=== PATIENT | male | born 1950 | race Caucasian/White ===

== ENCOUNTER 2020-10-05 01:25 | Emergency (ER) | payer BC, MEDICARE ==
[2020-10-05 01:32] VITALS: BP 133/85; PULSE 99; RESP 18; TEMP 98.3
[2020-10-05] MEDS ORDERED: HYDROmorphone 0.5 MG/0.5 ML SYRINGE IM STA (02:20)
--- NOTE | 2020-10-05 02:28 | XR ---
EXAM: XR Right Foot Complete, 3 or More Views CLINICAL HISTORY: ITS.REASON XR Reason: gout? injury yesterday but pain started today TECHNIQUE: Frontal, lateral and oblique views of the right foot. COMPARISON: No relevant prior studies available. FINDINGS: Bones/joints: Unremarkable. No acute fracture. No dislocation. Plantar calcaneal spur. Degenerative changes of bubba right first metatarsophalangeal joint. No focal erosions. Soft tissues: Unremarkable. No radiopaque foreign body. IMPRESSION: 1. No acute fractures or traumatic malalignment to the right foot. 2. Degenerative changes of the right first metatarsophalangeal joint. No significant edema, soft tissue swelling or erosions.
[2020-10-05] MEDS ORDERED: INDOMETHACIN 25 MG CAP PO ONE (02:30)
[2020-10-05] MEDS ORDERED: ACET/COD 300 MG/30 MG STARTER PACK 6 TAB BTL PO STA (03:00)
--- NOTE | 2020-10-05 03:01 | ED ---
Lower Extremity Injury HPI - General Chief Complaint: Extremity Injury, Lower Stated Complaint: Right foot injury Time Seen by Provider: 10/05/20 01:34 Source: patient Mode of arrival: wheelchair Limitations: no limitations - History of Present Illness Initial Comments: 70-year-old male history of gout presenting for right great toe pain. Patient states that on Monday afternoon he tripped down the second to last step. He states he felt we did not hit his head neck chest abdomen he denies noting any extremity injuries at all was walking around normally. Patient states that this afternoon around 3 PM he developed right great toe pain. Patient states it was very tender to walk on. He states he is not sure if this was secondary to the fall. Patient denies any bruising ankle pain knee pain, he denies any fevers chills or malaise. He states at the base of the right great toe looks slightly red. He denies any openings in skin or lacerations. Many resistive negative upon arrival patient appears well nontoxic distress - Related Data Previous Rx's Medication Instructions Recorded HYDROcodone/APAP 5-325MG [[place] 1 tab PO Q4HR PRN 3 Days #18 tab 10/05/20 5-325] Indomethacin [Indocin] 50 mg PO BID 5 Days #20 capsule 10/05/20 Allergies Allergy/AdvReac Type Severity Reaction Status Date / Time No Known Allergies Allergy Verified 10/05/20 01:32 Review of Systems ROS Statement: Those systems with pertinent positive or pertinent negative responses have been documented in the HPI. ROS Other: All systems not noted in ROS Statement are negative. Past Medical History Past Medical History: Hyperlipidemia History of Any Multi-Drug Resistant Organisms: None Reported Past Surgical History: Orthopedic Surgery Past Psychological History: No Psychological Hx Reported Smoking Status: Never smoker Past Alcohol Use History: None Reported Past Drug Use History: None Reported General Exam - General Exam Comments Initial Comments: General: The patient is awake and alert, in no distress, and does not appear acutely ill. Eye: +3 mm pupils are equal, round and reactive to light, extra-ocular movements are intact. No nystagmus. There is normal conjunctiva bilaterally. No signs of icterus. Musculoskeletal: Redness at the first MTP joint. tender, no bruising, full ROM. no plantar bruising or forefoot pain. Normal ROM, no tenderness. Strength 5/5. Sensation intact. Radial and DP pulses equal bilaterally 2+. Neurological: A&O x 3. CN II-XII intact grossly, There are no obvious motor or sensory deficits. Coordination appears grossly intact. Speech is normal. Skin: Skin is warm and dry and no rashes or lesions are noted. Psychiatric: Cooperative, appropriate mood & affect, normal judgment. Limitations: no limitations Course Vital Signs 10/05/20 01:29 Temperature 98.3 F Pulse Rate 99 Respiratory 18 Rate Blood Pressure 133/85 O2 Sat by Pulse 98 Oximetry Medical Decision Making - Medical Decision Making Given the history provided and physical examination that feel that this is most likely gout. Patient states he did not initially have any toe pain after the fall, and I feel this is a significant delay in the onset of symptoms-patient does have history of gout, there is redness swelling and pain at the MTP joint, and signs of degeneration. Patient has no fevers, chills, general malaise. I discussed case and reviewed xr with attending Dr Temple who is agreeable to discharge with indomethacin and norco as well as orthopedic f/u. recommend crutches for comfort. patient discharged appearing well, return parameters discussed. Disposition Clinical Impression: Pain of right great toe Disposition: HOME SELF-CARE Condition: Good Instructions (If sedation given, give patient instructions): Gout (ED) Additional Instructions: Please use medication as discussed. Please follow-up with orthopedic surgery in next 2-3 days and PCP in 1-2 days. Please return to emergency room if the symptoms increase or worsen or for any other concerns. Prescriptions: Indomethacin [Indocin] 50 mg PO BID 5 Days #20 capsule HYDROcodone/APAP 5-325MG [[place] 5-325] 1 tab PO Q4HR PRN 3 Days #18 tab PRN Reason: Pain Is patient prescribed a controlled substance at d/c from ED?: No Referrals: Erik Garrett DO [Primary Care Provider] - 1-2 days Larry Aguilar MD [STAFF PHYSICIAN] - 1-2 days Time of Disposition: 03:01
== END 2020-10-05 04:26 | disposition home or self-care (01) ==
LOC: EC 01:25
DX: M79.674 Pain in right toe(s) (principal); E78.5 Hyperlipidemia, unspecified
CPT/HCPCS: 73630; 99283; J1170

== ENCOUNTER 2022-03-19 09:41 | Inpatient (IN) | payer MEDICARE ==
[2022-03-19 10:25] LABS: Basophils # (A) 0.1 k/uL (0-0.2); Basophils % (A) 0 %; Eosinophils # (A) 0.1 k/uL (0-0.7); Eosinophils % (A) 0 %; HCT 45.4 % (39.0-53.0); Lymphocytes # (A) 0.8 k/uL (1.0-4.8); Lymphocytes % (A) 3 %; MCV 90.8 fL (80.0-100.0); Mean Platelet Volume 8.3; Monocytes # (A) 1.8 k/uL (0-1.0); Monocytes % (A) 7 %; Neutrophils # (A) 21.4 k/uL (1.3-7.7); Neutrophils % (A) 87 %; Platelet Count 230 k/uL (150-450); RDW 13.3 % (11.5-15.5); WBC 24.5 k/uL (3.8-10.6)
[2022-03-19] MEDS ORDERED: SODIUM CHLORIDE 0.9% 1,000 ML IV STA ×2 (10:32→13:47)
[2022-03-19] MEDS ORDERED: MORPHINE SULFATE 4 MG/ML SYRINGE IVP STA (10:32)
[2022-03-19] MEDS ORDERED: ONDANSETRON 4 MG/2 ML VIAL IVP STA (10:32)
--- NOTE | 2022-03-19 10:35 | XR ---
EXAMINATION TYPE: XR KUB DATE OF EXAM: 03/19/2022 Comparison: None Clinical History: 72-year-old male with right lower quadrant abdominal pain Findings: Lung bases are clear. No evidence for free intraperitoneal air. Scattered prominent small bowel loops measuring up to 3.1 cm. No differential air-fluid levels are se en. Scattered colonic air extending distally to rectum. Mild overall stool within the right side of t he colon. Bowel content largely obscures the renal shadows. Impression: Gassy abdomen. Overall nonobstructive bowel gas pattern. Some borderline distended small bowel loops measuring up to 3.1 cm could reflect an ileus or enteritis.
[2022-03-19 11:10] LABS: ALT 22 U/L (4-49); AST 39 U/L (17-59); African American GFR (CKD) >90 (>60 ml/min/1.73 sqM); Alkaline Phosphatase 76 U/L (38-126); Amylase 43 U/L (30-110); Anion Gap 13 mmol/L; Blood Urea Nitrogen 11 mg/dL (9-20); Calcium 8.3 mg/dL (8.4-10.2); Carbon Dioxide 20 mmol/L (22-30); Chloride 100 mmol/L (98-107); Glucose 153 mg/dL (74-99); Lipase 27 U/L (23-300); Non-African American GFR(CKD) >90 (>60 ml/min/1.73 sqM); Potassium 4.2 mmol/L (3.5-5.1); Sodium 133 mmol/L (137-145); Total Bilirubin 1.5 mg/dL (0.2-1.3); Total Protein 6.8 g/dL (6.3-8.2)
[2022-03-19 11:57] LABS: Appearance,Urine Clear (Clear); Bilirubin,Urine Negative (Negative); Blood,Urine Moderate (Negative); Color,Urine Yellow; Glucose,Urine (UA) 2+ (Negative); Leukocyte Esterase,Urine Negative (Negative); Mucus,Urine Occasional /hpf; Nitrite,Urine Negative (Negative); Protein,Urine 1+ (Negative); RBC,Urine 38 /hpf (0-5); Specific Gravity,Urine 1.028 (1.001-1.035); Squamous Epithelial Cell,Urine <1 /hpf (0-4); WBC,Urine 1 /hpf (0-5)
[2022-03-19 12:04] LABS: Ketones,Urine 2+ (Negative)
--- NOTE | 2022-03-19 13:19 | CT ---
EXAMINATION TYPE: CT abdomen pelvis w con DATE OF EXAM: 03/19/2022 COMPARISON: NONE HISTORY: 72-year-old male RLQ abdominal pain TECHNIQUE: Contiguous axial scanning of the abdomen and pelvis following administration of 100 ml Iso kerline 300 IV contrast. Delayed images through the kidneys and coronal/sagittal reconstructions perform ed. CT DLP: 1903 mGycm Automated exposure control for dose reduction was used. FINDINGS: Heart normal size without pericardial effusion. Extensive LAD and RCA coronary artery calcifications are present. Mild aneurysm or descending thoracic aorta to 3.0 cm. Small hilar hernia. Suspect pleura l parenchymal scarring at both lung bases. No pleural effusion. Liver mildly enlarged at 18.1 cm. Portal venous system is patent. Low attenuation of the hepatic pare nchyma could represent fatty infiltration. Portal venous system is patent. No biliary ductal dilatation. Enlarged 1.2 cm woodrow hepatic lymph node likely reactive. No other mesenteric or retroperitoneal lymp hadenopathy. There is hydropic gallbladder changes with melquiades wall thickening and moderate to severe surrounding f at stranding and edema. Trace ascites at the dome of the bladder and mild within the pelvis. No free air. Adrenal glands, spleen, and pancreas within normal limits. Bilateral extra renal pelves. A couple benign renal cortical cysts measuring up to 1.1 cm. No dilated small bowel. Some subcutaneous fat stranding in the periumbilical region is nonspecific. Correlate for any celluli tis here. There is fusiform aneurysm infrarenal abdominal aorta measuring up to 4.0 cm. Distal abdominal aorta remains dilated up to 3.1 cm to the level of the bifurcation. Ectatic left common iliac artery up to 1.8 cm. A couple short segment fusiform aneurysms right common iliac artery measuring up to 2.2 cm. Mild stool burden. Scattered colonic diverticulosis along both the right side of the colon and lower descending and sigmoid colon. Inflammation at the level of the hepatic flexure likely contiguous with the gallbladder rather than relating to any diverticulitis. Bladder urine distended. Trace ascites fluid extends along the left lateral canal. Prostate gland yeny sures 4.9 cm wide. Pelvic phlebolith. No pelvic lymphadenopathy. Mild cul-de-sac free fluid. Bones: Mild degenerative change of the hips. Moderate to advanced degenerative disc disease L4-L5 and L5-S1. Additional moderate degenerative disc disease lower thoracic spine. IMPRESSION: 1. CT FINDINGS OF ACUTE CHOLECYSTITIS WITH MODERATE TO SEVERE INFLAMMATION. REACTIVE TRACE PERIHEPATI C ASCITES AND MILD PELVIC ASCITES. 2. INFLAMMATORY WALL THICKENING OF THE HEPATIC FLEXURE THE COLON. LIKELY CONTIGUOUS INFLAMMATION FROM THE GALLBLADDER RATHER THAN ACUTE DIVERTICULITIS. 3. CAD WITH EXTENSIVE LAD AND RCA CORONARY ARTERY CALCIFICATIONS. 4. ANEURYSM LOWER DESCENDING THORACIC AORTA UP TO 3.0 CM AND INFRARENAL ABDOMINAL AORTA UP TO 4.0 CM. A COUPLE OF SHORT SEGMENT ANEURYSMS RIGHT COMMON ILIAC ARTERY UP TO 2.2 CM. 5. HEPATIC STEATOSIS.
[2022-03-19] MEDS ORDERED: ONDANSETRON 4 MG/2 ML VIAL IVP PRN (13:51)
[2022-03-19] MEDS ORDERED: NALOXONE 0.4 MG/ML 1 ML VIAL IV PRN (13:51)
[2022-03-19] MEDS ORDERED: MORPHINE SULFATE 4 MG/ML SYRINGE IV PRN (13:51)
--- NOTE | 2022-03-19 13:58 | ED ---
General Adult HPI - General Chief complaint: Abdominal Pain Stated complaint: rt abd pain Time Seen by Provider: 03/19/22 10:50 Source: patient, RN notes reviewed, old records reviewed Mode of arrival: ambulatory Limitations: no limitations - History of Present Illness Initial comments: Patient is a 72-year-old male with past medical history remarkable for hyperlipidemia who presents emergency Department complaining of right lower quadrant abdominal pain. Has a history of appendectomy. States that the pain started a few days ago but has gotten slowly worse. Denies any fevers. Endorses nausea but no vomiting. Denies any change in his bowel movements. Denies any urinary complaints. Denies any chest pain or shortness of breath. Describes pain as sharp, achy sensation. Does not radiate. Presents for further evaluation time. No fevers, chills, sick contacts. No cough, upper respiratory symptoms. - Related Data Previous Rx's Medication Instructions Recorded HYDROcodone/APAP 5-325MG [[place] 1 tab PO Q4HR PRN 3 Days #18 tab 10/05/20 5-325] Indomethacin [Indocin] 50 mg PO BID 5 Days #20 capsule 10/05/20 Allergies Allergy/AdvReac Type Severity Reaction Status Date / Time No Known Allergies Allergy Verified 03/19/22 09:52 Review of Systems ROS Statement: Those systems with pertinent positive or pertinent negative responses have been documented in the HPI. Review of Systems: CONST: Denies fever EYES: Denies blurry vision ENT: Denies nasal congestion C/V: Denies Chest pain RESP: Denies shortness of breath GI: Endorses abdominal pain : Denies dysuria SKIN: Denies rash. MSK: Denies joint pain. NEURO: Denies headache ROS Other: All systems not noted in ROS Statement are negative. Past Medical History Past Medical History: Hyperlipidemia History of Any Multi-Drug Resistant Organisms: None Reported Past Surgical History: Orthopedic Surgery Past Psychological History: No Psychological Hx Reported Smoking Status: Never smoker Past Alcohol Use History: None Reported Past Drug Use History: None Reported General Exam - General Exam Comments Initial Comments: General: Appears in no acute distress. HEAD: Normal with no signs of head trauma. EYES: PERRLA, EOMI, conjunctiva normal, no discharge. ENT: Hearing grossly intact, normal oropharynx. RESPIRATORY: Clear breath sounds bilaterally. No wheezes, rales, or rhonchi. C/V: Mild sinus tachycardia with regular rhythm.. S1 and S2 auscultated, no edema, peripheral pulses 2+ and intact throughout ABD: Abdomen soft, nondistended. Tender to palpation primarily in the right lower quadrant as well as right mid quadrant. Some mild guarding in the right mid quadrant as well. Mild tenderness to palpation of the right upper quadrant. No left-sided abdominal tenderness. No rebound tenderness. No peritoneal signs. EXT: Normal range of motion, no obvious deformity SKIN: No rashes or lesions observed on exposed skin. NEURO: Alert and oriented 4. Limitations: no limitations Course Vital Signs 03/19/22 09:49 Temperature 99.2 F Pulse Rate 111 H Respiratory 18 Rate Blood Pressure 143/81 O2 Sat by Pulse 92 L Oximetry Medical Decision Making - Medical Decision Making Based on the patient's presentation and physical exam, I'm concerned for acute intra-abdominal process. This started in triage. It did reveal a leukocytosis of 24.5. Lactic acid is within normal limits. LFTs, alk phos are within normal limits. Total bilirubin is very slightly elevated to 1.5. Urinalysis is relatively unremarkable, positive for ketones and glucose. Moderate amount of blood. Covid is negative. I did discuss with him at this time I would like to obtain a CT abdomen and pelvis. He was in agreement this plan. He'll be symptomatic pretreated as well. Vital signs are within normal limits. He is tachycardic but this is likely secondary to pain. There was a delay in obtaining CT due to large volume of patients. CT abdomen pelvis did reveal acute moderate to severe cystitis. There is also reactive inflammation. There is a lower descending thoracic aortic aneurysm with maximal diameter up to 3.0-4.0 cm there is also hepatic steatosis. On reevaluation after the patient. I like to admit him to the hospital here. He was in agreement this plan. I spoke with surgery on-call Dr. Bustillos. He accepted the patient. Requested patient be made nothing by mouth. Anabolic selection by Dr. Bustillos was IV Rocephin and Flagyl which was ordered. Patient was started on IV fluids 130 mL an hour. Patient will be admitted in stable condition to Dr. Bustillos. - Lab Data Result diagrams: 03/19/22 09:58 03/19/22 09:58 Lab Results 03/19/22 03/19/22 03/19/22 Range/Units 09:58 09:58 10:00 WBC 24.5 H (3.8-10.6) k/uL RBC 5.00 (4.30-5.90) m/uL Hgb 15.0 (13.0-17.5) gm/dL Hct 45.4 (39.0-53.0) % MCV 90.8 (80.0-100.0) fL MCH 30.0 (25.0-35.0) pg MCHC 33.0 (31.0-37.0) g/dL RDW 13.3 (11.5-15.5) % Plt Count 230 (150-450) k/uL MPV 8.3 Neutrophils % 87 % Lymphocytes % 3 % Monocytes % 7 % Eosinophils % 0 % Basophils % 0 % Neutrophils # 21.4 H (1.3-7.7) k/uL Lymphocytes # 0.8 L (1.0-4.8) k/uL Monocytes # 1.8 H (0-1.0) k/uL Eosinophils # 0.1 (0-0.7) k/uL Basophils # 0.1 (0-0.2) k/uL Sodium 133 L (137-145) mmol/L Potassium 4.2 (3.5-5.1) mmol/L Chloride 100 (98-107) mmol/L Carbon Dioxide 20 L (22-30) mmol/L Anion Gap 13 mmol/L BUN 11 (9-20) mg/dL Creatinine 0.74 (0.66-1.25) mg/dL Est GFR (CKD-EPI)AfAm >90 (>60 ml/min/1.73 sqM) Est GFR (CKD-EPI)NonAf >90 (>60 ml/min/1.73 sqM) Glucose 153 H (74-99) mg/dL Plasma Lactic Acid Sunil (0.7-2.0) mmol/L Calcium 8.3 L (8.4-10.2) mg/dL Total Bilirubin 1.5 H (0.2-1.3) mg/dL AST 39 (17-59) U/L ALT 22 (4-49) U/L Alkaline Phosphatase 76 (38-126) U/L Total Protein 6.8 (6.3-8.2) g/dL Albumin 4.0 (3.5-5.0) g/dL Amylase 43 (30-110) U/L Lipase 27 (23-300) U/L Urine Color Urine Appearance (Clear) Urine pH (5.0-8.0) Ur Specific [place] (1.001-1.035) Urine Protein (Negative) Urine Glucose (UA) (Negative) Urine Ketones (Negative) Urine Blood (Negative) Urine Nitrite (Negative) Urine Bilirubin (Negative) Urine Urobilinogen (<2.0) mg/dL Ur Leukocyte Esterase (Negative) Urine RBC (0-5) /hpf Urine WBC (0-5) /hpf Ur Squamous Epith Cells (0-4) /hpf Urine Mucus (None) /hpf Coronavirus (PCR) Not Detected (Not Detectd) 03/19/22 03/19/22 Range/Units 11:20 11:20 WBC (3.8-10.6) k/uL RBC (4.30-5.90) m/uL Hgb (13.0-17.5) gm/dL Hct (39.0-53.0) % MCV (80.0-100.0) fL MCH (25.0-35.0) pg MCHC (31.0-37.0) g/dL RDW (11.5-15.5) % Plt Count (150-450) k/uL MPV Neutrophils % % Lymphocytes % % Monocytes % % Eosinophils % % Basophils % % Neutrophils # (1.3-7.7) k/uL Lymphocytes # (1.0-4.8) k/uL Monocytes # (0-1.0) k/uL Eosinophils # (0-0.7) k/uL Basophils # (0-0.2) k/uL Sodium (137-145) mmol/L Potassium (3.5-5.1) mmol/L Chloride (98-107) mmol/L Carbon Dioxide (22-30) mmol/L Anion Gap mmol/L BUN (9-20) mg/dL Creatinine (0.66-1.25) mg/dL Est GFR (CKD-EPI)AfAm (>60 ml/min/1.73 sqM) Est GFR (CKD-EPI)NonAf (>60 ml/min/1.73 sqM) Glucose (74-99) mg/dL Plasma Lactic Acid Sunil 1.3 (0.7-2.0) mmol/L Calcium (8.4-10.2) mg/dL Total Bilirubin (0.2-1.3) mg/dL AST (17-59) U/L ALT (4-49) U/L Alkaline Phosphatase (38-126) U/L Total Protein (6.3-8.2) g/dL Albumin (3.5-5.0) g/dL Amylase (30-110) U/L Lipase (23-300) U/L Urine Color Yellow Urine Appearance Clear (Clear) Urine pH 7.0 (5.0-8.0) Ur Specific [place] 1.028 (1.001-1.035) Urine Protein 1+ H (Negative) Urine Glucose (UA) 2+ H (Negative) Urine Ketones 2+ H (Negative) Urine Blood Moderate H (Negative) Urine Nitrite Negative (Negative) Urine Bilirubin Negative (Negative) Urine Urobilinogen 2.0 (<2.0) mg/dL Ur Leukocyte Esterase Negative (Negative) Urine RBC 38 H (0-5) /hpf Urine WBC 1 (0-5) /hpf Ur Squamous Epith Cells <1 (0-4) /hpf Urine Mucus Occasional H (None) /hpf Coronavirus (PCR) (Not Detectd) Disposition Clinical Impression: Acute cholecystitis Disposition: ADMITTED IP TO THIS [facility] Condition: Stable Referrals: Erik Garrett DO [Primary Care Provider] - 1-2 days Time of Disposition: 13:30
[2022-03-19 14:48] LABS: INR 1.1 (<1.2)
[2022-03-19 14:49] LABS: Partial Thromboplastin Time 26.5 sec (22.0-30.0)
[2022-03-19] MEDS: metroNIDAZOLE-NS PMX 500 MG in SALINE 1 100ML.BAG IVPB SCH ×2 (15:42→23:24)
[2022-03-19] MEDS ORDERED: PROPOFOL 10 MG/ML 20 ML VIAL IV ONE (17:43)
[2022-03-19] MEDS ORDERED: LIDOCAINE 2% INJ 20 MG/ML (2 ML VIAL) ONE (17:43)
[2022-03-19] MEDS ORDERED: SUCCINYLCHOLINE CHLORIDE 200 MG/10 ML VIAL IV ONE (17:43)
[2022-03-19] MEDS ORDERED: HYDROmorphone (PF) 1 MG/ML ONE (17:43)
[2022-03-19] MEDS ORDERED: ePHEDrine 50 MG/ML 1 ML VIAL ONE (17:43)
[2022-03-19] MEDS ORDERED: ONDANSETRON 4 MG/2 ML VIAL ONE (17:43)
[2022-03-19] MEDS ORDERED: ROCURONIUM 10 MG/ML (5 ML VIAL) IV ONE (17:43)
[2022-03-19] MEDS ORDERED: fentaNYL (PF) 50 MCG/ML 2 ML AMP ONE (17:43)
[2022-03-19] MEDS ORDERED: PHENYLEPHRINE-0.9% NACL SYG 1,000 MCG/10 ML SYRINGE ONE (17:43)
[2022-03-19] MEDS ORDERED: MIDAZOLAM 2 MG/2 ML VIAL ONE (17:43)
[2022-03-19] MEDS ORDERED: IV FLUID CONTINUATION 1,000 ML IV ONE (17:46)
[2022-03-19] MEDS ORDERED: BUPIVACAIN-EPI 0.25%-1:200,000 30 ML VIAL SQ ONE ×2 (18:08)
[2022-03-19] MEDS ORDERED: LACTATED RINGERS 1,000 ML IV ONE ×2 (18:54→20:28)
--- NOTE | 2022-03-19 22:55 | P.HPIM ---
History of Present Illness H&P Date: 03/19/22 Chief Complaint: Abdominal pain 72-year-old gentleman who presented to the emergency department today with 2 days history abdominal pain. Pain was associated with nausea and nonbloody emesis. Patient states pain was primarily on the right side, it is now more generalized. Patient was seen in the emergency department a CAT scan was done which was consistent with acute cholecystitis. Patient is also noted to have some aneurysmal change in the thoracic and abdominal aorta without evidence of rupture. Patient denies any prior history of cholecystitis or known gallbladder problems. Imaging demonstrates a normal common bile duct liver function studies are normal aside from the total bilirubin of 1.4. Review of Systems Patient denies any headache change in vision no shortness of breath chest pain no urinary symptoms no new musculoskeletal problems. Past Medical History Past Medical History: Hyperlipidemia Additional Past Medical History / Comment(s): Past medical history notable for hyperlipidemia. Denies angina or myocardial infarction stroke or breathing difficulties. History of Any Multi-Drug Resistant Organisms: None Reported (Past surgical history notable for open appendectomy, umbilical herniorrhaphy, bilateral knee replacement and lower endoscopy.) Past Surgical History: Orthopedic Surgery Past Psychological History: No Psychological Hx Reported Smoking Status: Never smoker Past Alcohol Use History: None Reported Past Drug Use History: None Reported Medications and Allergies Home Medications Medication Instructions Recorded Confirmed Type Ascorbic Acid [Vitamin C] 1,000 mg PO DAILY 03/19/22 03/19/22 History Cholecalciferol [Vitamin D3 (25 25 mcg PO DAILY 03/19/22 03/19/22 History Mcg = 1000 Iu)] Ezetimibe [Zetia] 10 mg PO DAILY 03/19/22 03/19/22 History Zinc Gluconate [Zinc] 50 mg PO DAILY 03/19/22 03/19/22 History Allergies Allergy/AdvReac Type Severity Reaction Status Date / Time No Known Allergies Allergy Verified 03/19/22 15:00 Physical Exam Vitals: Vital Signs Temp Pulse Resp BP Pulse Ox 03/19/22 14:29 99.5 F 99 20 123/68 93 L 03/19/22 09:49 99.2 F 111 H 18 143/81 92 L Intake and Output 03/19/22 03/19/22 03/19/22 06:59 14:59 22:59 Other: Weight 106.594 kg - Constitutional General appearance: average body habitus, cooperative - EENT Eyes: EOMI - Neck Neck: no lymphadenopathy, normal ROM - Respiratory Respiratory: bilateral: CTA - Cardiovascular Regular rate and rhythm no murmur appreciated Rhythm: regular - Gastrointestinal Protuberant, tender over her epigastrium and right upper quadrant. Well-healed cicatrix below umbilicus - Genitourinary Normal genitalia for age - Neurologic Alert and oriented 3 - Psychiatric Psychiatric: appropriate affect Results CBC & Chem 7: 03/19/22 09:58 03/19/22 09:58 Labs: Abnormal Lab Results - Last 24 Hours (Table) 03/19/22 03/19/22 03/19/22 Range/Units 09:58 09:58 11:20 WBC 24.5 H (3.8-10.6) k/uL Neutrophils # 21.4 H (1.3-7.7) k/uL Lymphocytes # 0.8 L (1.0-4.8) k/uL Monocytes # 1.8 H (0-1.0) k/uL Sodium 133 L (137-145) mmol/L Carbon Dioxide 20 L (22-30) mmol/L Glucose 153 H (74-99) mg/dL Calcium 8.3 L (8.4-10.2) mg/dL Total Bilirubin 1.5 H (0.2-1.3) mg/dL Urine Protein 1+ H (Negative) Urine Glucose (UA) 2+ H (Negative) Urine Ketones 2+ H (Negative) Urine Blood Moderate H (Negative) Urine RBC 38 H (0-5) /hpf Urine Mucus Occasional H (None) /hpf CT scan - abdomen: report reviewed (Distended gallbladder with thickened wall, pericholecystic fluid noted. Findings consistent with acute cholecystitis), image reviewed Assessment and Plan Assessment: 72-year-old male with acute cholecystitis Elevated WBC, no indication choledocholithiasis Past medical history as noted above Plan: Broad-spectrum IV antibiotics Plan for laparoscopic possible open cholecystectomy The nature of gallbladder disease its surgical treatment and expected results discussed Potential complications including bleeding, infection, and injury to the common bile duct discussed Patient indicates he understands and desires to pursue cholecystectomy. Time with Patient: Greater than 30 (Spoke with anesthesia, operating room team called)
[2022-03-19] MEDS: HEPARIN SODIUM,PORCINE/PF 5,000 UNIT/0.5 ML SYRINGE SQ SCH ×2 (23:15→23:24)
[2022-03-19] MEDS: SODIUM CHLORIDE 0.9% 1,000 ML IV SCH (23:23)
[2022-03-19] MEDS: KETOROLAC 15 MG/ML 1 ML VIAL IVP SCH (23:24)
--- NOTE | 2022-03-19 23:27 | P.OP ---
Date of Procedure: 03/19/22 Preoperative Diagnosis: Acute cholecystitis Postoperative Diagnosis: Acute cholecystitis Iatrogenic injury to small bowel. Procedure(s) Performed: Laparoscopic cholecystectomy Resection short segment small bowel with primary anastomosis Anesthesia: MILTON Surgeon: Julian Bustillos Estimated Blood Loss (ml): 100 Pathology: other (Gallbladder) Condition: stable Disposition: PACU Indications for Procedure: Patient is a 72-year-old male who presented to the emergency department here with 2 days acute abdominal pain with associated nausea and vomiting. On exam patient was noted to have marketed epigastric and right upper quadrant tenderness. Laboratory studies demonstrated a WBC count of 24,000. Total bilirubin was 1.4 a computed tomography scan of the abdomen was performed which was consistent with acute cholecystitis. The nature of gallbladder disease and its surgical treatment were discussed with the patient and his family and informed consent obtained for cholecystectomy. Operative Findings: Tensely distended gallbladder with very thickened wall Description of Procedure: The patient was brought to the operating room a preoperative timeout was taken. Antibiotics had been initiated. Gen. anesthesia and monitoring were provided by the anesthesia department. The patient was placed on the table in a supine position a preoperative urinary catheter was placed. The abdomen was widely prepped and draped in a sterile fashion local anesthetic was infiltrated in the skin below the umbilicus, a small skin incision was made. A Veress needle was used to establish a pneumoperitoneum. Using a 5 mm optical trocar, entry was gained into the abdominal cavity. In passing the trocar there appeared to be intestine adherent to the abdominal wall. A separate 5 mm optical trocar was then placed in the left upper quadrant. When the camera was placed in the left upper quadrant there could be seen to be small bowel and omentum adherent to the periumbilical area. A third 5 mm trocar was then placed in the left lower quadrant, using a combination of blunt and sharp dissection, adhesions were taken down away from the abdominal wall. In order to facilitate this another 5 mm trocar was placed in the left lateral abdominal wall. As the small bowel was mobilized away from the abdominal wall there could be seen to be a small laceration to a segment of the small bowel. After all the adhesions were cleared it was decided to address the cholecystectomy laparoscopically and return for an open repair of the small bowel. Two 5 mm trochars were placed along the right lateral abdominal wall under direct vision. At this point it was noted that the omentum was densely adherent to the gallbladder. Using primarily blunt diss the surrounding soft tissue was from the gallbladder. After the gallbladder could be partially visualized this was aspirated of approximately 150 mL of bilious purulent fluid, sample was sent for culture. After further tedious dissection the infundibular area was exposed. Again after tedious dissection the cystic duct and cystic artery could be seen entering into the gallbladder. The artery was clipped and then sharply divided. The cystic duct itself was rather short and there appeared to be a small stone within it. With careful dissection some slight additional length of the cystic duct was obtained this was then clipped with 3 clips left to stay and then sharply divided. The gallbladder itself was then dissected off the undersurface of the liver using cautery. After the gallbladder was completely free this was placed in an Endobag and brought out through the larger trocar site. The trocar was replaced and the surgical field inspected, small amount of oozing from the hepatic surface was controlled with electrocoagulation. All free fluid was then aspirated out. Good hemostasis was observed. The fascia at the larger trocar site was reapproximated with 0 Vicryl suture on a Barry Haro needle. Attention was then directed towards the small bowel, the area of interest was grasped. A short incision was then made around the umbilicus, this was carried down to the level of the fascia and the fascia carefully opened in the midline. Small bowel was then delivered through the incision and inspected. It was decided to resect a short segment of the small bowel and perform a primary anastomosis. A spot was chosen proximally and distally for resection, small bowel was divided using a GLORIA 75 mm stapler. The intervening mesentery was divided using a LigaSure. An anatomical side to side, functional end to end stapled anastomosis was performed in my usual fashion. The small bowel was allowed to return to the abdominal cavity. Sterile saline was used to irrigate the peritoneal cavity. The fascia was reapproximated with interrupted sutures of 0 Vicryl. The subcutaneous tissue was reapproximated with 3-0 Vicryl, and the skin closed with surgical clips. A 10-Zimbabwean flat MERT drain had been placed in the subhepatic space and was brought out the abdominal wall through one of the pre-existing trocar sites. The drain was sutured to the skin with 3-0 nylon. Sterile dressings were applied, at the end of the procedure all counts were correct. The patient was extubated and taken to recovery in stable condition.
[2022-03-19 23:41] LABS: ALT 58 U/L (4-49); AST 80 U/L (17-59); African American GFR (CKD) >90 (>60 ml/min/1.73 sqM); Albumin 3.1 g/dL (3.5-5.0); Albumin/Globulin Ratio 1.3; Alkaline Phosphatase 69 U/L (38-126); Anion Gap 10 mmol/L; Blood Urea Nitrogen 14 mg/dL (9-20); Calcium 7.7 mg/dL (8.4-10.2); Carbon Dioxide 23 mmol/L (22-30); Chloride 101 mmol/L (98-107); Globulin 2.4 g/dL; Glucose 157 mg/dL (74-99); Non-African American GFR(CKD) 87 (>60 ml/min/1.73 sqM); Sodium 134 mmol/L (137-145); Total Protein 5.5 g/dL (6.3-8.2)
[2022-03-20 04:17] LABS: ALT 58 U/L (4-49); AST 85 U/L (17-59); African American GFR (CKD) >90 (>60 ml/min/1.73 sqM); Albumin/Globulin Ratio 1.3; Alkaline Phosphatase 73 U/L (38-126); Anion Gap 10 mmol/L; Blood Urea Nitrogen 14 mg/dL (9-20); Calcium 7.7 mg/dL (8.4-10.2); Carbon Dioxide 23 mmol/L (22-30); Chloride 101 mmol/L (98-107); Globulin 2.4 g/dL; Glucose 114 mg/dL (74-99); Non-African American GFR(CKD) 88 (>60 ml/min/1.73 sqM); Potassium 4.2 mmol/L (3.5-5.1); Sodium 134 mmol/L (137-145); Total Bilirubin 0.8 mg/dL (0.2-1.3); Total Protein 5.4 g/dL (6.3-8.2)
[2022-03-20] MEDS: metroNIDAZOLE-NS PMX 500 MG in SALINE 1 100ML.BAG IVPB SCH ×3 (05:58→20:12)
[2022-03-20] MEDS: KETOROLAC 15 MG/ML 1 ML VIAL IVP SCH ×4 (05:58→23:58)
[2022-03-20] MEDS: SODIUM CHLORIDE 0.9% 1,000 ML IV SCH ×2 (05:59→14:11)
[2022-03-20] MEDS: HEPARIN SODIUM,PORCINE/PF 5,000 UNIT/0.5 ML SYRINGE SQ SCH ×3 (07:36→23:58)
[2022-03-20 09:27] LABS: HCT 37.9 % (39.6-50.0); HGB 12.2 g/dL (13.0-17.0); MCH 29.8 pg (27.0-32.0); MCHC 32.2 g/dL (32.0-37.0); MCV 92.7 fL (80.0-97.0); Mean Platelet Volume 11.3 fL (9.5-12.2); NRBC Per 100 WBC 0 /100 WBCS (0.0-0.0); Platelet Count 216 X 10*3/uL (140-440); RBC 4.09 X 10*6/uL (4.40-5.60); RDW 14.6 % (11.5-14.5); WBC 17.28 X 10*3/uL (4.50-10.00)
[2022-03-20 11:09] LABS: Basophils # (A) 0.03 X 10*3/uL (0.00-0.10); Basophils % (A) 0.2 %; Eosinophils # (A) 0 X 10*3/uL (0.04-0.35); Eosinophils % (A) 0 %; Immature Grans, Automated 0.6 %; Lymphocytes # (A) 0.81 X 10*3/uL (0.90-5.00); Lymphocytes % (A) 4.7 %; Monocytes # (A) 2.13 X 10*3/uL (0.20-1.00); Monocytes % (A) 12.3 %; Neutrophils % (A) 82.2 %
--- NOTE | 2022-03-20 11:40 | P.PN ---
Subjective Progress Note Date: 03/20/22 Principal diagnosis: Postop day 1 laparoscopic cholecystectomy and small bowel resection. Patient awake and alert, pain well controlled 97.9, pulse 105, BP 124/73 Breathing nonlabored Regular rate and rhythm Abdomen soft, dressings dry and intact MERT with serosanguineous fluid, 60 mL out overnight Sodium 134 potassium 4.2 BUN/creatinine 14 over 0.8 Total bilirubin 0.8 AST 85, ALT 58 72-year-old male, postop day 1 cholecystectomy, small bowel resection Encourage up and out of bed Continue IV fluids and antibiotics DC Stock Sips clear liquids recheck labs in am, continue supportive care. Objective - Vital Signs Vital signs: Vital Signs Temp 97.9 F 03/20/22 08:00 Pulse 105 H 03/20/22 08:00 Resp 16 03/20/22 08:00 BP 124/73 03/20/22 08:00 Pulse Ox 95 03/20/22 08:00 FiO2 Intake & Output 03/19/22 03/20/22 03/20/22 18:59 06:59 18:59 Intake Total 1700 740 Output Total 1535 Balance 1700 -795 Weight 106.594 kg 106.594 kg Intake: IV 1700 500 Oral 240 Output: Drainage 60 Right Lower Abdomen 60 Urine 1375 Estimated Blood Loss 100 Other: Voiding Method Indwelling Catheter - Labs CBC & Chem 7: 03/20/22 03:18 03/20/22 03:18 Labs: Abnormal Lab Results - Last 24 Hours (Table) 03/19/22 03/19/22 03/20/22 Range/Units 11:20 23:14 03:18 WBC 17.28 H (4.50-10.00) X 10*3/uL RBC 4.09 L (4.40-5.60) X 10*6/uL Hgb 12.2 L (13.0-17.0) g/dL Hct 37.9 L (39.6-50.0) % RDW 14.6 H (11.5-14.5) % Immature Gran # 0.11 H (0.00-0.04) X 10*3/uL Neutrophils # 14.20 H (1.80-7.70) X 10*3/uL Lymphocytes # 0.81 L (0.90-5.00) X 10*3/uL Monocytes # 2.13 H (0.20-1.00) X 10*3/uL Eosinophils # 0 L (0.04-0.35) X 10*3/uL Sodium 134 L (137-145) mmol/L Glucose 157 H (74-99) mg/dL Calcium 7.7 L (8.4-10.2) mg/dL AST 80 H (17-59) U/L ALT 58 H (4-49) U/L Total Protein 5.5 L (6.3-8.2) g/dL Albumin 3.1 L (3.5-5.0) g/dL Urine Protein 1+ H (Negative) Urine Glucose (UA) 2+ H (Negative) Urine Ketones 2+ H (Negative) Urine Blood Moderate H (Negative) Urine RBC 38 H (0-5) /hpf Urine Mucus Occasional H (None) /hpf 03/20/22 Range/Units 03:18 WBC (4.50-10.00) X 10*3/uL RBC (4.40-5.60) X 10*6/uL Hgb (13.0-17.0) g/dL Hct (39.6-50.0) % RDW (11.5-14.5) % Immature Gran # (0.00-0.04) X 10*3/uL Neutrophils # (1.80-7.70) X 10*3/uL Lymphocytes # (0.90-5.00) X 10*3/uL Monocytes # (0.20-1.00) X 10*3/uL Eosinophils # (0.04-0.35) X 10*3/uL Sodium 134 L (137-145) mmol/L Glucose 114 H (74-99) mg/dL Calcium 7.7 L (8.4-10.2) mg/dL AST 85 H (17-59) U/L ALT 58 H (4-49) U/L Total Protein 5.4 L (6.3-8.2) g/dL Albumin 3.0 L (3.5-5.0) g/dL Urine Protein (Negative) Urine Glucose (UA) (Negative) Urine Ketones (Negative) Urine Blood (Negative) Urine RBC (0-5) /hpf Urine Mucus (None) /hpf Microbiology - Last 24 Hours (Table) 03/19/22 21:27 Body Fluid Culture - Preliminary Aspirate 03/19/22 21:27 Anaerobic Culture - Preliminary Gallbladder Fluid
[2022-03-21] MEDS: KETOROLAC 15 MG/ML 1 ML VIAL IVP SCH ×3 (05:51→17:01)
[2022-03-21] MEDS: metroNIDAZOLE-NS PMX 500 MG in SALINE 1 100ML.BAG IVPB SCH ×3 (05:51→20:21)
[2022-03-21] MEDS: SODIUM CHLORIDE 0.9% 1,000 ML IV SCH ×2 (05:52→20:21)
[2022-03-21] MEDS: HEPARIN SODIUM,PORCINE/PF 5,000 UNIT/0.5 ML SYRINGE SQ SCH ×2 (07:54→17:01)
[2022-03-21 09:34] LABS: African American GFR (CKD) 109.3 (60.0-200.0); BUN/Creat Ratio 17.71 Ratio (12.00-20.00); Blood Urea Nitrogen 12.4 mg/dL (9.0-27.0); Calcium 7.3 mg/dL (8.7-10.3); Non-African American GFR(CKD) 94.3 (60.0-200.0); Potassium 3.9 mmol/L (3.5-5.5)
[2022-03-21 09:38] LABS: HCT 36.3 % (39.6-50.0); HGB 11.9 g/dL (13.0-17.0); MCH 30.1 pg (27.0-32.0); MCHC 32.8 g/dL (32.0-37.0); MCV 91.9 fL (80.0-97.0); Mean Platelet Volume 11.5 fL (9.5-12.2); NRBC Per 100 WBC 0 /100 WBCS (0.0-0.0); Platelet Count 220 X 10*3/uL (140-440); RBC 3.95 X 10*6/uL (4.40-5.60); RDW 14.5 % (11.5-14.5); WBC 11.91 X 10*3/uL (4.50-10.00)
[2022-03-21] MEDS: PANTOPRAZOLE 40 MG/10 ML VIAL IVP SCH (09:40)
--- NOTE | 2022-03-21 12:49 | P.CNPUL ---
History of Present Illness Consult date: 03/21/22 Reason for consult: dyspnea History of present illness: Patient is a 72-year-old male who presented to the emergency department here with 2 days acute abdominal pain with associated nausea and vomiting. On exam patient was noted to have marketed epigastric and right upper quadrant tenderness. Laboratory studies demonstrated a WBC count of 24,000. Total bilirubin was 1.4 a computed tomography scan of the abdomen was performed which was consistent with acute cholecystitis. Based on all this, the patient was taken to the operating room and the patient underwent a laparoscopic cholecystectomy. Intraoperatively, there was an iatrogenic injury to the small bowel. Based on that, the patient underwent a resection of the short segment of small bowel with primary anastomosis. Estimated blood loss was around 100 mL. Surgery was done on 03/19/2022 and the patient is postop day #2. Overall, the patient is stable. He is tolerating diet in the form of clear liquid diet at this point in time. I was asked even with this patient as the patient was noted to be having some shortness of breath. In terms of antibiotic coverage, the patient is on IV Rocephin and Flagyl. The patient is also normal saline at the rate of 75 mL's an hour. His white cell count dropped from 24 down to 11.9 with hemoglobin 11.9 and a platelet count of 220. Electrodes are stable. Hemoglobin BUN and creatinine. COVID 19 testing was negative and the patient's body fluid from the gallbladder has shown gram-negative bacillus. Anaerobic cultures are still pending for now. Otherwise, the patient is awake and alert. He is follo wing commands. He is on oxygen at 4 L per minute nasal cannula. His CAT scan of the abdomen that was done on 03/19/2022 showed that the lung bases are essentially clear and he had some reactive trace perihepatic ascites and mild pelvic ascites. Inflammatory wall changes involving the hepatic flexure of the colon. This was probably related to the abnormalities in the gallbladder. He did have significant cholecystitis. 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 He has an incentive spirometer. His past medical history has been positive for hyperlipidemia Review of Systems Constitutional: Reports as per HPI Eyes: denies as per HPI, denies blurred vision, denies bulging eye, denies decreased vision, denies diplopia, denies discharge, denies dry eye, denies irritation, denies itching, denies pain, denies photophobia, denies loss of peripheral vision, denies loss of vision, denies tunnel vision/blind spots Ears: deny: decreased hearing, ear discharge, earache, tinnitus Ears, nose, mouth and throat: Reports as per HPI Breasts: absent: as per HPI, gynecomastia Respiratory: Reports as per HPI Gastrointestinal: Reports abdominal pain Genitourinary: Reports as per HPI Musculoskeletal: Reports as per HPI Musculoskeletal: absent: ankle pain, ankle stiffness, ankle swelling, as per HPI, elbow pain, elbow stiffness, elbow swelling, foot pain, foot stiffness, foot swelling, hand pain, hand stiffness, hand swelling, hip pain, hip stiffness, hip swelling, knee pain, knee stiffness, knee swelling, shoulder pain, shoulder stiffness, shoulder swelling, wrist pain, wrist stiffness, wrist swelling Integumentary: Reports as per HPI Neurological: Reports as per HPI Psychiatric: Reports as per HPI Endocrine: Reports as per HPI Hematologic/Lymphatic: Reports as per HPI Allergic/Immunologic: Reports as per HPI Past Medical History Past Medical History: Hyperlipidemia Additional Past Medical History / Comment(s): Past medical history notable for hyperlipidemia. Denies angina or myocardial infarction stroke or breathing difficulties. History of Any Multi-Drug Resistant Organisms: None Reported Past Surgical History: Hernia Repair, Orthopedic Surgery Additional Past Surgical History / Comment(s): pins in left ankle, bilateral knee replacement, Past Anesthesia/Blood Transfusion Reactions: No Reported Reaction Past Psychological History: No Psychological Hx Reported Smoking Status: Never smoker Past Alcohol Use History: None Reported Past Drug Use History: None Reported - Past Family History Father Additional Family Medical History / Comment(s): rheumatic fever Mother Family Medical History: Cancer Additional Family Medical History / Comment(s): breast ca Medications and Allergies Home Medications Medication Instructions Recorded Confirmed Type Ascorbic Acid [Vitamin C] 1,000 mg PO DAILY 03/19/22 03/19/22 History Cholecalciferol [Vitamin D3 (25 25 mcg PO DAILY 03/19/22 03/19/22 History Mcg = 1000 Iu)] Ezetimibe [Zetia] 10 mg PO DAILY 03/19/22 03/19/22 History Zinc Gluconate [Zinc] 50 mg PO DAILY 03/19/22 03/19/22 History Allergies Allergy/AdvReac Type Severity Reaction Status Date / Time No Known Allergies Allergy Verified 03/19/22 15:00 Physical Exam Vitals: Vital Signs Temp Pulse Resp BP Pulse Ox 03/21/22 08:00 95 16 167/98 94 L 03/21/22 03:03 98.8 F 96 17 153/90 93 L 03/20/22 20:00 98 16 03/20/22 19:37 98.3 F 89 19 152/89 96 03/20/22 14:00 99.7 F H 98 16 152/85 94 L Intake and Output 03/20/22 03/21/22 03/21/22 22:59 06:59 14:59 Intake Total 1080 Output Total 20 10 Balance 1060 -10 Intake: Oral 1080 Output: Drainage 20 10 Right Lower Abdomen 20 10 Other: Voiding Method Indwelling Catheter Indwelling Catheter # Voids 4 Gen. appearance the patient is calm and comfortable, not in acute distress on 4 L of oxygen by nasal cannula Head exam was generally normal. There was no scleral icterus or corneal arcus. Mucous membranes were moist. Neck was supple and without jugular venous distension, thyromegaly, or carotid bruits. Carotids were easily palpable bilaterally. There was no adenopathy. Lungs are diminished in the right lung base and overall breath sounds are quite diminished. There is also the less breath on the right lung base. Cardiac exam revealed the PMI to be normally situated and sized. The rhythm was regular and no extrasystoles were noted during several minutes of auscultation. The first and second heart sounds were normal and physiologic splitting of the second heart sound was noted. There were no murmurs, rubs, clicks, or gallops. Abdomen is soft and the surgical wound site is dry clean and intact and the patient has a MERT drain in the right upper quadrant Examination of the extremities revealed easily palpable radial, femoral and pedal pulses. There was no cyanosis, clubbing or edema. Examination of the skin revealed no evidence of significant rashes, suspicious appearing nevi or other concerning lesions. Neurologically, the patient is awake and alert and the patient does not have any focal neurological deficit. Cranial nerves are essentially intact. Results - Laboratory Findings CBC and BMP: 03/21/22 03:28 03/21/22 03:28 PT/INR, D-dimer PT 12.0 sec (9.0-12.0) 03/19/22 14:25 INR 1.1 (<1.2) 03/19/22 14:25 Abnormal lab findings: Abnormal Labs 03/19/22 03/19/22 03/19/22 09:58 09:58 11:20 WBC 24.5 H RBC Hgb Hct RDW Immature Gran # Neutrophils # 21.4 H Lymphocytes # 0.8 L Monocytes # 1.8 H Eosinophils # Sodium 133 L Carbon Dioxide 20 L Anion Gap Glucose 153 H Calcium 8.3 L Total Bilirubin 1.5 H AST ALT Total Protein Albumin Urine Protein 1+ H Urine Glucose (UA) 2+ H Urine Ketones 2+ H Urine Blood Moderate H Urine RBC 38 H Urine Mucus Occasional H 03/19/22 03/20/22 03/20/22 23:14 03:18 03:18 WBC 17.28 H RBC 4.09 L Hgb 12.2 L Hct 37.9 L RDW 14.6 H Immature Gran # 0.11 H Neutrophils # 14.20 H Lymphocytes # 0.81 L Monocytes # 2.13 H Eosinophils # 0 L Sodium 134 L 134 L Carbon Dioxide Anion Gap Glucose 157 H 114 H Calcium 7.7 L 7.7 L Total Bilirubin AST 80 H 85 H ALT 58 H 58 H Total Protein 5.5 L 5.4 L Albumin 3.1 L 3.0 L Urine Protein Urine Glucose (UA) Urine Ketones Urine Blood Urine RBC Urine Mucus 03/21/22 03/21/22 03:28 03:28 WBC 11.91 H RBC 3.95 L Hgb 11.9 L Hct 36.3 L RDW Immature Gran # Neutrophils # Lymphocytes # Monocytes # Eosinophils # Sodium Carbon Dioxide Anion Gap 8.00 L Glucose Calcium 7.3 L Total Bilirubin AST ALT Total Protein Albumin Urine Protein Urine Glucose (UA) Urine Ketones Urine Blood Urine RBC Urine Mucus Assessment and Plan Plan: Shortness of breath on that investigation. Suspect postop atelectasis/effusion in the right lung base, anticipated were expected outcome of surgery Acute hypoxic respiratory failure secondary to above currently on 4 L about 2 by nasal cannula Acute cholecystitis, post laparoscopic cholecystectomy and the patient is postop day #2 Iatrogenic small bowel perforation, post resection and the patient is postop day #2 Acute leukocytosis, improving Obesity with a BMI of 34.7 Plan Encouraged use of incentive spirometer The patient on a chair Obtain a chest x-ray IV fluids at 75 mL an hour Clear liquid diet and advance diet as tolerated Surgical wound site is dry clean and intact and the MERT drain is in place Well continue the same antibiotic coverage with Rocephin and Flagyl We'll continue to follow make further recommendations based on his progress.
--- NOTE | 2022-03-21 13:28 | XR ---
EXAMINATION TYPE: XR chest 1V portable DATE OF EXAM: 03/21/2022 Comparison: None Clinical History: 72-year-old male Shortness of breath Findings: Low lung volumes. Cardiovascular markings. Strandy bibasilar opacities. Heart upper limits of normal in size. Aorta and pulmonary vasculature within normal limits. Otherwise, no melquiades consolidation or p leural effusion. Impression: Prominent hypoventilatory changes. Strandy bibasilar atelectasis. Allowing for the low lung volumes, no definite acute process.
--- NOTE | 2022-03-21 13:59 | P.PN ---
Subjective Progress Note Date: 03/21/22 Patient seen and examined at bedside. I am taking over care from Dr. Bustillos, that did take care of the patient since admission. Patient states today that he had a bowel movement and abdominal pain is improving. Leukocytosis is improving. Tolerating diet. Denying any nausea or vomiting.On evaluation, he does appear slightly short of breath. Patient states that he has episodes like this on and off even as an outpatient. Objective - Vital Signs Vital signs: Vital Signs Temp 98.8 F 03/21/22 03:03 Pulse 95 03/21/22 08:00 Resp 16 03/21/22 08:00 BP 167/98 03/21/22 08:00 Pulse Ox 94 L 03/21/22 08:00 FiO2 Intake & Output 03/20/22 03/21/22 03/21/22 18:59 06:59 18:59 Intake Total 1080 Output Total 10 20 Balance 1070 -20 Intake: Oral 1080 Output: Drainage 10 20 Right Lower Abdomen 10 20 Other: Voiding Method Indwelling Catheter Indwelling Catheter Indwelling Catheter # Voids 4 - Constitutional General appearance: Present: cooperative - Respiratory Details: Somewhat short of breath - Gastrointestinal Gastrointestinal Comment(s): Soft, appropriate incisional tenderness, nondistended, no rebound, no guarding, incision sites are clean, dry and intact - Psychiatric Psychiatric: Present: A&O x's 3 - Labs CBC & Chem 7: 03/21/22 03:28 03/21/22 03:28 Labs: Abnormal Lab Results - Last 24 Hours (Table) 03/21/22 03/21/22 Range/Units 03:28 03:28 WBC 11.91 H (4.50-10.00) X 10*3/uL RBC 3.95 L (4.40-5.60) X 10*6/uL Hgb 11.9 L (13.0-17.0) g/dL Hct 36.3 L (39.6-50.0) % Anion Gap 8.00 L (10.00-18.00) mmol/L Calcium 7.3 L (8.7-10.3) mg/dL Microbiology - Last 24 Hours (Table) 03/19/22 21:27 Gram Stain - Preliminary Aspirate Body Fluid Culture - Preliminary Gram Neg Bacilli 03/19/22 14:05 Blood Culture - Preliminary Blood No Growth after 24 hours 03/19/22 13:50 Blood Culture - Preliminary Blood No Growth after 24 hours 03/19/22 21:27 Anaerobic Culture - Preliminary Gallbladder Fluid Assessment and Plan Plan: Postoperative from cholecystectomy and small bowel resection. Patient appears to be having return of bowel function with bowel movement today. Diet to be advanced. We will decrease IV fluids and did encourage patient to increase activity and continue with incentive spirometry. Due to shortness of breath, I did discuss case with pulmonology and did request evaluation.Progressing slowly.
[2022-03-22] MEDS: KETOROLAC 15 MG/ML 1 ML VIAL IVP SCH ×4 (00:41→17:11)
[2022-03-22] MEDS: HEPARIN SODIUM,PORCINE/PF 5,000 UNIT/0.5 ML SYRINGE SQ SCH ×3 (00:41→15:07)
[2022-03-22] MEDS: metroNIDAZOLE-NS PMX 500 MG in SALINE 1 100ML.BAG IVPB SCH ×3 (06:05→21:22)
--- NOTE | 2022-03-22 11:10 | P.PN ---
Subjective Progress Note Date: 03/22/22 Patient is a 72-year-old male who presented to the emergency department here wit h 2 days acute abdominal pain with associated nausea and vomiting. On exam patient was noted to have marketed epigastric and right upper quadrant tenderness. Laboratory studies demonstrated a WBC count of 24,000. Total bilirubin was 1.4 a computed tomography scan of the abdomen was performed which was consistent with acute cholecystitis. Based on all this, the patient was taken to the operating room and the patient underwent a laparoscopic cholecystectomy. Intraoperatively, there was an iatrogenic injury to the small bowel. Based on that, the patient underwent a resection of the short segment of small bowel with primary anastomosis. Estimated blood loss was around 100 mL. Surgery was done on 03/19/2022 and the patient is postop day #2. Overall, the patient is stable. He is tolerating diet in the form of clear liquid diet at this point in time. I was asked even with this patient as the patient was noted to be having some shortness of breath. In terms of antibiotic coverage, the patient is on IV Rocephin and Flagyl. The patient is also normal saline at the rate of 75 mL's an hour. His white cell count dropped from 24 down to 11.9 with hemoglobin 11.9 and a platelet count of 220. Electrodes are stable. Hemoglobin BUN and creatinine. COVID 19 testing was negative and the patient's body fluid from the gallbladder has shown gram-negative bacillus. Anaerobic cultures are still pending for now. Otherwise, the patient is awake and alert. He is following commands. He is on oxygen at 4 L per minute nasal cannula. His CAT scan of the abdomen that was done on 03/19/2022 showed that the lung bases are essentially clear and he had some reactive trace perihepatic ascites and mild pelvic ascites. Inflammatory wall changes involving the hepatic flexure of the colon. This was probably related to the abnormalities in the gallbladder. He did have significant cholecystitis. 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 He has an incentive spirometer. His past medical history has been positive for hyperlipidemia On today's evaluation of 03/22/2022, the patient is postop day #3. He is doing well. No new complaints. Using incentive spirometer and he is achieving a level of 1000. He is currently on 3 L O2 nasal cannula. Denies having any shortness of breath. No nausea or emesis. He is denying regular food and the patient is passing bowel movement.A chest x-ray was done yesterday and showed prominent hypoventilatory changes. There was stranding the bibasilar atelectasis and smaller lung volumes. For that reason the patient will be asked to sit up on a chair and continue his deep breathing. He was also was able to do some walking in the hallway. Minimal amount of output has been seen through the MERT drain. Objective - Vital Signs Vital signs: Vital Signs Temp 97.8 F 03/22/22 08:00 Pulse 84 03/22/22 08:00 Resp 18 03/22/22 08:00 BP 157/90 03/22/22 08:00 Pulse Ox 97 03/22/22 08:00 FiO2 Intake & Output 03/21/22 03/22/22 03/22/22 18:59 06:59 18:59 Intake Total 1150 Balance 1150 Intake: Intake, IV Titration 500 Amount Sodium Chloride 0.9% 1, 400 000 ml @ 50 mls/hr IV . Q20H FELIX Rx#:[id number] metroNIDAZOLE-NS PMX 500 100 mg In Saline 1 100ml.bag @ 100 mls/hr IVPB Q8H FELIX Rx#:[id number] Oral 650 Other: Voiding Method Indwelling Catheter Indwelling Catheter # Voids 3 1 - Exam Gen. appearance the patient is calm and comfortable, not in acute distress on 3L of oxygen by nasal cannula Head exam was generally normal. There was no scleral icterus or corneal arcus. M ucous membranes were moist. Neck was supple and without jugular venous distension, thyromegaly, or carotid bruits. Carotids were easily palpable bilaterally. There was no adenopathy. Lungs are diminished in the right lung base and overall breath sounds are quite diminished. There is also the less breath on the right lung base. Cardiac exam revealed the PMI to be normally situated and sized. The rhythm was regular and no extrasystoles were noted during several minutes of auscultation. The first and second heart sounds were normal and physiologic splitting of the second heart sound was noted. There were no murmurs, rubs, clicks, or gallops. Abdomen is soft and the surgical wound site is dry clean and intact and the patient has a MERT drain in the right upper quadrant Examination of the extremities revealed easily palpable radial, femoral and pedal pulses. There was no cyanosis, clubbing or edema. Examination of the skin revealed no evidence of significant rashes, suspicious appearing nevi or other concerning lesions. Neurologically, the patient is awake and alert and the patient does not have any focal neurological deficit. Cranial nerves are essentially intact. - Labs CBC & Chem 7: 03/21/22 03:28 03/21/22 03:28 Labs: Microbiology - Last 24 Hours (Table) 03/19/22 14:05 Blood Culture - Preliminary Blood No Growth after 48 hours 03/19/22 13:50 Blood Culture - Preliminary Blood No Growth after 48 hours 03/19/22 21:27 Gram Stain - Preliminary Aspirate Body Fluid Culture - Preliminary Gram Neg Bacilli Assessment and Plan Plan: Shortness of breath on that investigation. Suspect postop atelectasis/effusion in the right lung base, anticipated were expected outcome of surgery. The chest x-ray showed mainly hypoventilatory changes and atelectatic changes in lung bases bilaterally. The patient was given incentive spirometer and he is feeling well for now. Acute hypoxic respiratory failure secondary to above currently on 3 L O2 nasal cannula Acute cholecystitis, post laparoscopic cholecystectomy and the patient is postop day # 3 Iatrogenic small bowel perforation, post resection and the patient is postop day # 3 Acute leukocytosis, improving Obesity with a BMI of 34.7 Plan We are going to wean down the FiO2 as tolerated to maintain a saturation above 90%, currently on 3 L Encouraged use of incentive spirometer The patient on a chair Chest x-ray from yesterday was noted and the patient was advised to do deep breathing and walking IV fluids at 75 mL an hour Clear liquid diet and advance diet as tolerated Surgical wound site is dry clean and intact and the MERT drain is in place, output is minimal Well continue the same antibiotic coverage with Rocephin and Flagyl We'll continue to follow make further recommendations based on his progress.
[2022-03-22] MEDS: SODIUM CHLORIDE 0.9% 1,000 ML IV SCH (11:42)
[2022-03-22] MEDS: PANTOPRAZOLE 40 MG/10 ML VIAL IVP SCH (11:43)
--- NOTE | 2022-03-22 14:19 | CDI ---
Documentation Clarification Form Date: 03/23/2022 01:39:41 PM From: Abi Hendrix RN CCDS Admit Date: 03/19/2022 01:51:00 PM Patient Name: Eleazar Lee Visit Number: [id number] Discharge Date: ATTENTION: The Clinical Documentation Specialists (CDI) and [facility] Coding Staff appreciate your assistance in clarifying documentation. Please respond to the clarification below the line at the bottom and electronically sign. The CDI & [facility] Coding staff will review the response and follow-up if needed. Please note: Queries are made part of the Legal Health Record. If you have any questions, please contact the author of this message via ITS. Dr. Sai Palma, DO The patient presented with the following clinical indicators. Additional clarification regarding the etiology/cause of the clinical indicators is requested. History/Risk Factors: 72-year-old male presents to the ED with two-day history of abdominal pain, nausea and emesis. Medical History: HLD Clinical Indicators: Admitting diagnosis: Cholecystitis CT ABD: 03/19 Inflammatory wall thickening of the hepatic flexure the colon likely contiguous inflammation from the gallbladder rather than acute diverticulitis. Acute cholecystitis with moderate to severe inflammation. WBC: 03/19 24.5 Neutrophils: 03/19 21.4 Body fluid cultures: 03/19 Gram Neg Bacilli Vitals signs: 03/19 B/P 143/81; HR 111; Temp 99.2 F Oral; RR 18; SpO2 92% Room Air Treatment: Antibiotics: 03/19 Ceftriaxone 1gm IVPB Q24HR; 03/19 Metronidazole 500mg IVPB Q8H. IV Bolus: 03/19 0.9NS 1L bolus In your professional opinion, please clarify if these findings signify one of the following conditions: [x] Sepsis POA [ ] Sepsis ruled out [ ] Other, please specify [ ] Unable to determine SIRS Criteria: 2 or more of the following may indicate SIRS -Temperature < 96.8F (36C) or > 101.0F (38.3C) -Heart Rate > 90 bpm -Respiratory Rate > 20 breaths/min or PaCO2 < 32 mmHg -White Blood Cell Count > 12,000 or < 4,000 cells/mm3 or > 10% bands (Template Last Reviewed: August 2020) DUDLEY
--- NOTE | 2022-03-22 20:27 | P.PN ---
Subjective Progress Note Date: 03/22/22 Patient seen and examined at bedside. Continues to have bowel function. States pain is well controlled. Denies nausea or vomiting. No acute events and no complaints. Objective - Vital Signs Vital signs: Vital Signs Temp 97.4 F L 03/22/22 13:52 Pulse 89 03/22/22 13:52 Resp 18 03/22/22 13:52 BP 146/59 03/22/22 13:52 Pulse Ox 96 03/22/22 13:52 FiO2 Intake & Output 03/22/22 03/22/22 03/23/22 06:59 18:59 06:59 Output Total 10 Balance -10 Output: Drainage 10 Right Lower Abdomen 10 Other: Voiding Method Indwelling Catheter # Voids 1 - Constitutional General appearance: Present: cooperative - Gastrointestinal Gastrointestinal Comment(s): soft, nontender, no distention, MERT with serosanguinous output, incisions are C/D/I - Psychiatric Psychiatric: Present: A&O x's 3 - Labs CBC & Chem 7: 03/21/22 03:28 03/21/22 03:28 Labs: Microbiology - Last 24 Hours (Table) 03/19/22 14:05 Blood Culture - Preliminary Blood No Growth after 72 hours 03/19/22 13:50 Blood Culture - Preliminary Blood No Growth after 72 hours 03/19/22 21:27 Gram Stain - Preliminary Aspirate Body Fluid Culture - Preliminary Enterobacter cloacae Assessment and Plan Plan: Postoperative from cholecystectomy and small bowel resection. Continues to have bowel function. Diet to be advanced. He was evaluated by pulm with rec ommendation of NC O2 at this time. He is being weaned. Recommended increase in activity and IS. Fluids were discontinued. Hopefully will be stable for discharge tomorrow.
[2022-03-23] MEDS: KETOROLAC 15 MG/ML 1 ML VIAL IVP SCH ×3 (00:13→12:08)
[2022-03-23] MEDS: HEPARIN SODIUM,PORCINE/PF 5,000 UNIT/0.5 ML SYRINGE SQ SCH ×2 (00:13→08:01)
[2022-03-23] MEDS: metroNIDAZOLE-NS PMX 500 MG in SALINE 1 100ML.BAG IVPB SCH ×2 (05:53→13:12)
[2022-03-23 07:26] VITALS: BP 147/88; PULSE 80; TEMP 98.3
[2022-03-23] MEDS: PANTOPRAZOLE 40 MG/10 ML VIAL IVP SCH (08:19)
[2022-03-23 09:04] VITALS: RESP 18
--- NOTE | 2022-03-23 11:48 | P.DS ---
Providers Date of admission: 03/19/22 13:51 Expected date of discharge: 03/23/22 Attending physician: uJlian Bustillos MD Consults: 03/21/22 12:49 Consult Physician Urgent Consulting Provider: Haylee Willis Consult Reason/Comments: Shortness of breath Do you want consulting provider notified?: Already Contacted Primary care physician: [facility] Course: Patient is a 72-year-old gentleman admitted to [facility] March 19 2022 with acute abdominal pain. Workup was consistent with acute cholecystitis, he was started on antibiotics and taken to the operating room where the laparoscopic cholecystectomy was pursued. He has history of a previous umbilical hernia repair, and there were some adhesions in this area leading to an enterotomy that was managed with a small 5 cm S segmental resection and anastomosis. Final pathology from cholecystectomy showed acute and gangrenous cholecystitis with necrosis, no evidence of neoplasia. Cultures from intra-abdominal fluid yielded anaerobe back to cloaca A, resistant to Augmentin, and sensitive to most other agents. Maintained on IV antibiotics in the inpatient setting. He did have some issues with postoperative atelectasis and the oxygen dependence. He was successfully weaned by date of discharge. He was advanced from clear liquids to a regular diet without issue. On date of discharge she was ambulatory without problems, had no complaints of significant pain, was hemodynamically stable and afebrile. He was assessed by pulmonology over the course of his stay. His presenting leukocytosis trended down. He was discharged home with drain in place and instructed to follow up with general surgery within 1 week, primary care within the similar time frame, avoid any lifting over 10 pounds, shower daily, and keep his inches in dressed with bacitracin and clean dressings twice daily and as needed. Procedures: Laparoscopic cholecystectomy and segmental small bowel resection with anastomosis Patient Condition at Discharge: Good Plan - Discharge Summary Discharge Rx Participant: Yes New Discharge Prescriptions: No Action Ascorbic Acid [Vitamin C] 1,000 mg PO DAILY Zinc Gluconate [Zinc] 50 mg PO DAILY Ezetimibe [Zetia] 10 mg PO DAILY Cholecalciferol [Vitamin D3 (25 Mcg = 1000 Iu)] 25 mcg PO DAILY Discharge Medication List Ascorbic Acid [Vitamin C] 1,000 mg PO DAILY 03/19/22 [History] Cholecalciferol [Vitamin D3 (25 Mcg = 1000 Iu)] 25 mcg PO DAILY 03/19/22 [History] Ezetimibe [Zetia] 10 mg PO DAILY 03/19/22 [History] Zinc Gluconate [Zinc] 50 mg PO DAILY 03/19/22 [History] Follow up Appointment(s)/Referral(s): Khanh Reza DO [Doctor of Osteopathic Medicine] - 1 Week Erik Garrett DO [Primary Care Provider] - 1 Week Discharge Disposition: HOME SELF-CARE
--- NOTE | 2022-03-23 13:11 | P.PN ---
Subjective Progress Note Date: 03/23/22 Patient is a 72-year-old male who presented to the emergency department here wit h 2 days acute abdominal pain with associated nausea and vomiting. On exam patient was noted to have marketed epigastric and right upper quadrant tenderness. Laboratory studies demonstrated a WBC count of 24,000. Total bilirubin was 1.4 a computed tomography scan of the abdomen was performed which was consistent with acute cholecystitis. Based on all this, the patient was taken to the operating room and the patient underwent a laparoscopic cholecystectomy. Intraoperatively, there was an iatrogenic injury to the small bowel. Based on that, the patient underwent a resection of the short segment of small bowel with primary anastomosis. Estimated blood loss was around 100 mL. Surgery was done on 03/19/2022 and the patient is postop day #2. Overall, the patient is stable. He is tolerating diet in the form of clear liquid diet at this point in time. I was asked even with this patient as the patient was noted to be having some shortness of breath. In terms of antibiotic coverage, the patient is on IV Rocephin and Flagyl. The patient is also normal saline at the rate of 75 mL's an hour. His white cell count dropped from 24 down to 11.9 with hemoglobin 11.9 and a platelet count of 220. Electrodes are stable. Hemoglobin BUN and creatinine. COVID 19 testing was negative and the patient's body fluid from the gallbladder has shown gram-negative bacillus. Anaerobic cultures are still pending for now. Otherwise, the patient is awake and alert. He is following commands. He is on oxygen at 4 L per minute nasal cannula. His CAT scan of the abdomen that was done on 03/19/2022 showed that the lung bases are essentially clear and he had some reactive trace perihepatic ascites and mild pelvic ascites. Inflammatory wall changes involving the hepatic flexure of the colon. This was probably related to the abnormalities in the gallbladder. He did have significant cholecystitis. 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 He has an incentive spirometer. His past medical history has been positive for hyperlipidemia On today's evaluation of 03/22/2022, the patient is postop day #3. He is doing well. No new complaints. Using incentive spirometer and he is achieving a level of 1000. He is currently on 3 L O2 nasal cannula. Denies having any shortness of breath. No nausea or emesis. He is denying regular food and the patient is passing bowel movement.A chest x-ray was done yesterday and showed prominent hypoventilatory changes. There was stranding the bibasilar atelectasis and smaller lung volumes. For that reason the patient will be asked to sit up on a chair and continue his deep breathing. He was also was able to do some walking in the hallway. Minimal amount of output has been seen through the MERT drain. 03/23/2022, the patient is postop day #4. The patient is ambulating. The patient is currently off oxygen. The patient using incentive spirometer. No respiratory difficulties. The MERT drain is still draining serosanguineous material. The cultures were positive for Enterobacter. This was discussed with general surgery and the patient is going to be discharged home on oral Bactrim and the MERT drain will be kept in place to be followed up with general surgery. The patient has no complaints otherwise. Objective - Vital Signs Vital signs: Vital Signs Temp 98.3 F 03/23/22 07:25 Pulse 80 03/23/22 09:00 Resp 18 03/23/22 09:00 BP 147/88 03/23/22 07:25 Pulse Ox 97 03/23/22 07:25 FiO2 Intake & Output 03/22/22 03/23/22 03/23/22 18:59 06:59 18:59 Output Total 10 Balance -10 Output: Drainage 10 Right Lower Abdomen 10 Other: Voiding Method Toilet Toilet Urinal Urinal # Voids 1 1 - Exam Gen. appearance the patient is calm and comfortable, currently on room air oxygen Head exam was generally normal. There was no scleral icterus or corneal arcus. Mucous membranes were moist. Neck was supple and without jugular venous distension, thyromegaly, or carotid bruits. Carotids were easily palpable bilaterally. There was no adenopathy. Lungs are diminished in the right lung base and overall breath sounds are quite diminished. There is also the less breath on the right lung base. Cardiac exam revealed the PMI to be normally situated and sized. The rhythm was regular and no extrasystoles were noted during several minutes of auscultation. The first and second heart sounds were normal and physiologic splitting of the second heart sound was noted. There were no murmurs, rubs, clicks, or gallops. Abdomen is soft and the surgical wound site is dry clean and intact and the patient has a MERT drain in the right upper quadrant Examination of the extremities revealed easily palpable radial, femoral and pedal pulses. There was no cyanosis, clubbing or edema. Examination of the skin revealed no evidence of significant rashes, suspicious appearing nevi or other concerning lesions. Neurologically, the patient is awake and alert and the patient does not have any focal neurological deficit. Cranial nerves are essentially intact. - Labs CBC & Chem 7: 03/21/22 03:28 03/21/22 03:28 Labs: Microbiology - Last 24 Hours (Table) 03/19/22 21:27 Anaerobic Culture - Preliminary Gallbladder Fluid 03/19/22 14:05 Blood Culture - Preliminary Blood No Growth after 72 hours 03/19/22 13:50 Blood Culture - Preliminary Blood No Growth after 72 hours 03/19/22 21:27 Gram Stain - Preliminary Aspirate Body Fluid Culture - Preliminary Enterobacter cloacae Assessment and Plan Plan: Shortness of breath on that investigation. Suspect postop atelectasis/effusion in the right lung base, anticipated were expected outcome of surgery. The chest x-ray showed mainly hypoventilatory changes and atelectatic changes in lung bases bilaterally. The patient was given incentive spirometer and he is feeling well for now. Clinically the patient is much improved and the patient has no sh ortness of breath at this point in time Acute hypoxic respiratory failure secondary to postoperative atelectasis, recovered and the patient is currently on room air Acute cholecystitis, post laparoscopic cholecystectomy and the patient is postop day # 4. Abdominal fluid is positive for Enterobacter Iatrogenic small bowel perforation, post resection and the patient is postop day # 4 Acute leukocytosis, improving, white cell count is down to 11.9 Obesity with a BMI of 34.7 Plan No active respiratory issues The patient can be discharged home today Keep the MERT drain in place in follow-up with general surgery Completed course of Bactrim regarding Enterobacter and the abdominal fluid Diet is regular We'll sign off the case
== END 2022-03-23 14:22 | disposition home or self-care (01) | DRG 853 ==
LOC: EC 09:41 → 5NMEDONC 13:51 → 4SSUR 16:39
PROVIDERS: ADMIT Surgery; ATTEND Surgery
PROC: 0FT44ZZ Resection of Gallbladder, Percutaneous Endoscopic Approach (ICD-10-PCS; principal; 2022-03-19 17:30)
PROC: 0DB80ZZ Excision of Small Intestine, Open Approach (ICD-10-PCS; principal; 2022-03-19 17:30)
DX: A41.9 Sepsis, unspecified organism (principal); J96.01 Acute respiratory failure with hypoxia; K81.0 Acute cholecystitis; J98.11 Atelectasis; R18.8 Other ascites; K91.71 Accidental puncture and laceration of a digestive system organ or structure during a digestive system procedure; E66.9 Obesity, unspecified; Z68.34 Body mass index [BMI] 34.0-34.9, adult; E78.5 Hyperlipidemia, unspecified; I71.2 Thoracic aortic aneurysm, without rupture; D72.829 Elevated white blood cell count, unspecified; K76.0 Fatty (change of) liver, not elsewhere classified; K82.8 Other specified diseases of gallbladder; N30.90 Cystitis, unspecified without hematuria; Z20.822 Contact with and (suspected) exposure to COVID-19; Z79.899 Other long term (current) drug therapy; Z28.310 Unvaccinated for COVID-19; Z53.31 Laparoscopic surgical procedure converted to open procedure
CPT/HCPCS: 36415; 71045; 74018; 74177; 80048; 80053; 81001; 82150; 83605; 83690; 85025; 85027; 85610; 85730; 86850; 86900; 86901; 87040; 87070; 87075; 87077; 87186; 87205; 87635; 88304; 88307; 93005; 94760; 96361; 96365; 96375; 99285